=== PATIENT | male | born 1965 | race Caucasian/White ===

== ENCOUNTER 2020-05-13 10:38 | Day surgery (SDC) | payer BC ==
[2020-05-13 11:10] LABS: Absolute Lymphocytes (CBC) 2.4 K/uL (0.7-4.9); Basophils % 0.8 % (0-1.3); Hematocrit 45.7 % (39.6-49.0); MPV 8.2 fL (7.6-11.3); RBC Red Blood Cell Count 5.01 M/uL (4.33-5.43)
[2020-05-13] MEDS ORDERED: CEFAZOLIN/SWI 1gm 1 GM/10 ML SYR ONE (11:23)
[2020-05-13] MEDS ORDERED: Ringers Lactate 1,000 ML IV ONE (11:23)
--- NOTE | 2020-05-13 11:37 | RAD REPORT ---
EXAM DESCRIPTION: RAD - Chest Pa And Lat (2 Views) - 05/13/2020 11:31 am CLINICAL HISTORY: STAT, PREOP, SAME DAY SURGERY Chest pain. COMPARISON: No comparisons FINDINGS: The lungs are clear. The heart is normal in size. No displaced fractures. IMPRESSION: No acute or concerning finding suspected.
--- NOTE | 2020-05-13 12:03 | EKG ---
Test Date: 2020-05-13 Test Time: 11:43:40 [employer]: RONNIE MEASUREMENT RESULTS: Intervals: Rate: 73 SC: 166 QRSD: 102 QT: 402 QTc: 442 [place]: P: 51 SC: 166 QRS: 41 T: 32 INTERPRETIVE STATEMENTS: Normal sinus rhythm Normal ECG No previous ECG available for comparison Electronically Signed On 05-13-20 12:02:57 [employer] by Jairo Dong
[2020-05-13] MEDS ORDERED: LIDOCAINE 1% MPF 5 ML VIAL ONE (13:51)
[2020-05-13] MEDS ORDERED: FENTANYL CITR 100 MCG/2 ML ONE (13:51)
[2020-05-13] MEDS ORDERED: propofoL 200 MG/20 ML VIAL IV ONE (13:51)
[2020-05-13] MEDS ORDERED: ONDANSETRON 4 MG/2 ML VIAL ONE (14:02)
[2020-05-13] MEDS ORDERED: KETOROLAC 30 MG/ML INJ ONE (14:02)
[2020-05-13] MEDS ORDERED: dexAMETHasone 4 MG/ML VIAL ONE (14:06)
--- NOTE | 2020-05-13 14:08 | P.BOP ---
Preoperative diagnosis: infected right axillary mass with celulitis/abscess Postoperative diagnosis: same Primary procedure: Excisional biopsy infected right axillary mass with abscess drain [id number] Estimated blood loss: <10cc Specimen: culture Findings: as above Anesthesia: General Complications: None Drain(s): Other Transferred to: Recovery Room Condition: Good
[2020-05-13 15:51] VITALS: BP 149/73; TEMP 97.6; O2SAT 97
--- NOTE | 2020-05-13 17:05 | OP ---
Date of Procedure: 05/13/2020 Surgeon: Titi Huff MD Preoperative Diagnosis: Infected right axillary mass with cellulitis and abscess. Postoperative Diagnosis: Infected right axillary mass with cellulitis and abscess. Procedure: Excisional biopsy of large infected right axillary mass with abscess and drainage, is abo ut 7 x 6 cm x 3 cm. Anesthesia: General plus local. Specimen: Mass with purulent discharge. Findings: Infected mass with large abscess in the axillary area. Complications: None. Packing: Half an inch iodoform. Indications: This is the case of a 54-year-old patient, comes to us with a large very tender and shirley thematous mass in the right axillary region, diagnosed with an infected right axillary mass, very ten tatiana. He wants to have it done under anesthesia and I do agree since the area is enlarged. So, we ex plained to him the benefits, alternatives, and risks of excisional biopsy of infected right axillary mass with drainage of an abscess, which include, but not limited to infection, bleeding, damage to ad jacent structures, anesthesia complication, nonhealing wound, OK, and even . He also understand s this may not relieve the symptoms. He might need more than one surgical intervention. He understo od, signed a consent. He understood that he is going to be receiving wound care. We offered him als o try to arrange through his insurance company and home health agency, although he is still deciding on that. Procedure In Detail: The patient was brought to the operating room and placed in supine position. A time-out was called. Right axillary area was prepped and draped in a sterile fashion. Local anesth esia was applied followed by sharp incision of the skin and necrotic tissue present. It is already d raining pus. In the last few hours, started draining pus and had necrotic skin present so that skin was removed and we entered the cavity, removed the mass, found an abscess cavity even deeper in the a xillary region. We opened the loculations. I explored them, cleaned them, obtained hemostasis, and then the area was packed with iodoform half an inch. The patient tolerated the procedure well. The tissue was sent for culture and pathology and biopsy. The patient was sent to recovery in stable con dition. MARCELLUS/ANITA Voice ID: [id number] Report ID: [id number]
--- NOTE | 2020-05-13 17:11 | DS ---
Date of Discharge: 05/13/2020 Diagnosis: Infected right axillary mass with abscess. Procedure: Excisional biopsy of infected axillary mass with abscess drainage. Disposition: Home. Activity: As tolerated, no heavy lifting. Plan: Follow up in my office in 1 week. Call for appointment at [phone]. Keep area dry until evans rrow and then after that wet-to-dry dressing and normal saline daily. Medications: Include Tylenol No.3 q.4 hours p.r.n. pain and Bactrim, already have at home. MARCELLUS/ANITA Voice ID: [id number] Report ID: [id number]
== END 2020-05-13 15:30 | disposition home or self-care (01) ==
LOC: OR 10:38
PROVIDERS: ATTEND Surgery
PROC: 0HBBXZZ Excision of Right Upper Arm Skin, External Approach (ICD-10-PCS; principal; 2020-05-13 12:30)
DX: L72.0 Epidermal cyst (principal); L02.411 Cutaneous abscess of right axilla; L03.111 Cellulitis of right axilla; Z20.828 Contact with and (suspected) exposure to other viral communicable diseases; F17.210 Nicotine dependence, cigarettes, uncomplicated; I10 Essential (primary) hypertension; E03.9 Hypothyroidism, unspecified; F41.9 Anxiety disorder, unspecified
CPT/HCPCS: 36415; 71046; 80048; 85025; 87070; 87075; 87205; 88304; 93005; J0690; J1100; J2405; J2704; J3010; J7120; U0002